=== PATIENT | male | born 1970 | race Caucasian/White ===

== ENCOUNTER → 2019-01-19 | Outpatient (CLI) | payer OTHER ==
--- NOTE | 2019-01-19 20:07 | RAD ---
EXAM DESCRIPTION: Hip,Left 2 Views CLINICAL HISTORY: 48 years Male OSTEOARTHRITIS COMPARISON: None TECHNIQUE: Two images of the left hip were obtained. FINDINGS: Satisfactory articulation humeral head with acetabular region. No acute fracture seen. Sclerotic appearance left femoral head. Additional erosive change lateral left femoral head. Marked joint space narrowing predominantly medially. Bony overgrowth superior symphysis pubis. Soft tissue calcification versus artifact. IMPRESSION: No acute fracture or dislocation seen. Marked osteoarthritic change. Apparent sclerotic changes femoral head with additional erosive change lateral femoral head. Correlation with magnetic resonance study would be needed to further exclude avascular necrosis. Electronically signed by: Brittany De La Cruz MD 01/19/2019 8:05 PM CDT
--- NOTE | 2019-01-19 20:10 | RAD ---
EXAM DESCRIPTION: Hip,Right 2 Views CLINICAL HISTORY: 48 years Male OSTEOARTHRITIS COMPARISON: None TECHNIQUE: Two images of the right hip were obtained. FINDINGS: Satisfactory articulation femoral head with acetabular region. Severe joint space narrowing with associated sclerotic changes femoral head and acetabular region. Erosive changes lateral right femoral head. Mild bony overgrowth junction femoral head and femoral neck laterally. Bony overgrowth superior symphysis pubis. No fracture seen. IMPRESSION: Severe osteoarthritic change right hip. Underlying avascular necrosis not excluded. Possible femoral acetabular impingement. Electronically signed by: Brittany De La Cruz MD 01/19/2019 8:08 PM CDT
--- NOTE | 2019-01-19 20:13 | RAD ---
EXAM DESCRIPTION: Pelvis CLINICAL HISTORY: 48 years Male, OSTEOARTHRITIS COMPARISON: None. FINDINGS: No evidence for an acute fracture. No dislocation. Sacroiliac joints are grossly patent. Degenerative joint space narrowing is demonstrated of both hips with sclerosis, more prominent on the right. There is suggestion of mild subcortical cystic change in the bilateral femoral heads. Bridging osteophyte of the pubis noted. Visualized bowel gas pattern appears unremarkable. There is suggestion of a few vascular calcifications. IMPRESSION: 1. No acute fracture. 2. Degenerative changes of the hips. Electronically signed by: Gordo Linn MD 01/19/2019 8:11 PM CDT
== END ==
LOC: RAD 01-16 16:09
PROVIDERS: ATTEND Orthopaedic Surgery
DX: M16.0 Bilateral primary osteoarthritis of hip (principal)